=== PATIENT | male | born 1980 | race Caucasian/White ===

== ENCOUNTER 2019-11-17 13:17 | Emergency (ER) | payer SELFPAY ==
[~2019-11-17] VITALS: Ht 177.8 cm; Wt 82.0 kg
[2019-11-17] MEDS ORDERED: SODIUM CHLORIDE 0.9% 1,000 ML IV ONE (14:15)
[2019-11-17] MEDS ORDERED: CARBAMAZEPINE 200MG TABLET PO ONE ×2 (14:15→15:00)
[2019-11-17 14:44] LABS: BASOPHILS % 0.2 % (0.0-2.0); EOSINOPHILS % 0.6 % (0.0-5.0); HEMATOCRIT. 41.9 % (42.0-52.0); HEMOGLOBIN. 14.5 g/dL (14.0-18.0); MEAN CORPUSCULAR HEMOGLOBIN 30.8 pg (28.0-32.0); MEAN CORPUSCULAR VOLUME 88.9 fL (80.0-94.0); MEAN PLATELET VOLUME 8.4 fl (7.4-10.4); MONOCYTES % 7.5 % (2.0-8.0); NEUTROPHILS % 71.7 % (40.0-76.0); PLATELET 232 x1000/uL (130-400); RED BLOOD CELL COUNT 4.72 mill/uL (4.7-6.1); RED CELL DISTRIBUTION WIDTH 12.6 % (11.6-14.6)
[2019-11-17 14:51] LABS: CHLORIDE 107 mEq/L (98-107)
[2019-11-17] MEDS ORDERED: LORAZEPAM 2MG/ML CPJ ONE (14:56)
[2019-11-17] MEDS ORDERED: LORAZEPAM 2MG/ML CPJ IV ONE (15:15)
[2019-11-17 16:53] VITALS: BP 123/66
== END 2019-11-17 17:02 | disposition home or self-care (01) ==
LOC: ER 13:23
DX: G40.909 Epilepsy, unspecified, not intractable, without status epilepticus (principal); R74.0 Nonspecific elevation of levels of transaminase and lactic acid dehydrogenase [LDH]; S01.552A Open bite of oral cavity, initial encounter; X58.XXXA Exposure to other specified factors, initial encounter; Y93.89 Activity, other specified; Y92.9 Unspecified place or not applicable; Z91.14 Patient's other noncompliance with medication regimen
CPT/HCPCS: 36415; 80053; 83735; 85025; 85651; 96374; 99283; J2060; J7030; Z7610